=== PATIENT | male | born 1945 | race Caucasian/White ===

== ENCOUNTER → 2016-02-11 | Outpatient (CLI) | payer MEDICARE, OTHER ==
--- NOTE | 2016-02-11 11:58 | RADRPT ---
PROCEDURE: Left knee radiographs. CLINICAL INDICATION: Left knee pain. TECHNIQUE: Three views. Weight bearing. Frontal, lateral, and patellar view. COMPARISON: No prior studies are available for comparison. FINDINGS: There is a possible intra-articular loose body in the medial joint compartment measuring 1.4 x 0.3 c m seen only on the frontal view. There is no fracture or dislocation. The soft tissues are normal. The articular surfaces are intact. There are degenerative changes with osteophytes arising from all 3 joint compartment margins. There is medial joint compartment narrowing. There is no lytic or blastic lesion. There is no radiopaque foreign body. IMPRESSION: 1. Possible intra-articular loose body in the medial joint compartment. Correlation with CT scan o r MRI advised. 2. Moderate degenerative change predominately involving the medial joint compartment. RPTAT: QQ .Ander Romna MD, MD Date Time Electronically viewed and signed by .Ander Roman MD, on 02/11/2016 11:58 .R/
--- NOTE | 2016-02-11 14:27 | RADRPT ---
PROCEDURE: XR Left Hip and pelvis. CLINICAL INDICATION: Left hip pain. Pelvic pain. TECHNIQUE: Two views. Frontal pelvis and lateral left hip. COMPARISON: No prior studies are available for comparison. FINDINGS: There is no fracture or dislocation. The soft tissues are normal. There are degenerative changes of both hips with joint space narrowing and osteophytes. There is no deformity. There is no lytic or blastic lesion. The upper pelvis is not included on the images. IMPRESSION: 1. Moderate degenerative changes of both hips. 2. Otherwise unremarkable study. RPTAT: QQ .Ander Roman MD, Date Time Electronically viewed and signed by .Ander Roman MD, on 02/11/2016 14:26 .R/
--- NOTE | 2016-02-11 18:59 | HKNOTE ---
DATE OF SERVICE: 02/11/2016 The patient has degenerative osteoarthritis of the left knee. He comes in requesting repeat cortiso ne injection. The last injection lasted more than a year. Also complains of pain in his left groin . PHYSICAL EXAMINATION: The patient clinically has degenerative osteoarthritis of the left knee. Exa mination of the left hip: He has full range of motion with pain in the left groin at end limits of motion. IMAGING: Plain x-rays of the pelvis and hips obtained today show moderate degenerative osteoarthrit is of the left hip and mild degenerative osteoarthritis of the right hip. New x-rays of the left kn ee obtained today were compared with those taken 2015 and they show no progression of the arthritis. MANAGEMENT: Under sterile conditions, the patient was given injection of 2 mL of Kenalog and 6 mL o f 2% lidocaine into the left knee. He is advised that the hip arthritis will progress with time and there is nothing he can do about it. He will be seen again as necessary for further evaluation and treatment. Dictated By: MILLIE JOHNSON/SHRUTHI Conf#: [id number] DID#: [id number]
== END | disposition home or self-care (01) ==
LOC: HKI 11:09
DX: M17.12 Unilateral primary osteoarthritis, left knee (principal)
CPT/HCPCS: 20610; 73502; 73562; G0463; J3301

== ENCOUNTER → 2016-03-17 | Outpatient (CLI) | payer MEDICARE, OTHER ==
--- NOTE | 2016-03-17 18:57 | HKNOTE ---
DATE OF SERVICE: 03/17/2016 ____ has severe degenerative osteoarthritis of both hips, symptomatic only on the left side. He com es in requesting repeat cortisone injection. PHYSICAL EXAMINATION: VITAL SIGNS: Height 6 feet 2 inches, weight 240 pounds. Blood pressure 130/75, temperature is 97.8 . Patient has an antalgic gait. He does not use a walking aid. Examination of the left hip, marked l imitation of motion, pain at limits of motion. DIAGNOSIS: ____ IMAGING: Plain x-rays of the left hip were reviewed today. These show severe degenerative osteoart hritis affecting the hip with [id number] contact. MANAGEMENT: We briefly discussed the issues of ____and hip replacement surgery. Under sterile conditions, the patient was given injection of 2 mL of Kenalog and 6 mL of 2% lidocain e into the hip joint. Patient had immediate and complete relief of his pain. He will be seen again as necessary. Dictated By: MILLIE JOHNSON/SHRUTHI Conf#: [id number] DID#: [id number]
== END | disposition home or self-care (01) ==
LOC: HKI 14:29
DX: M16.0 Bilateral primary osteoarthritis of hip (principal)
CPT/HCPCS: 20610; G0463; J3301